=== PATIENT | male | born 1990 | race African-American/Black ===

== ENCOUNTER 2019-10-31 10:58 | Emergency (ER) | payer SELFPAY ==
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
[2019-10-31 11:13] VITALS: BP 125/60; PULSE 74; RESP 20; TEMP 36.8; O2SAT 99
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
[2019-10-31 13:16] VITALS: BP 132/76; PULSE 72; RESP 18; O2SAT 97
== END 2019-10-31 13:18 | disposition home or self-care (01) ==
LOC: ANHED 13:11
PROVIDERS: Emergency Provider Emergency Medicine
DX: S00.03XA Contusion of scalp, initial encounter (principal); S30.0XXA Contusion of lower back and pelvis, initial encounter; S20.211A Contusion of right front wall of thorax, initial encounter; V49.50XA Passenger injured in collision with unspecified motor vehicles in traffic accident, initial encounter
CPT/HCPCS: 70450; 71046; 72170; 99284